=== PATIENT | female | born 1995 | race Caucasian/White ===

== ENCOUNTER 2020-03-15 10:11 | Inpatient (IN) | payer MEDICAID, OTHER, SELFPAY ==
[2020-03-15] MEDS ORDERED: Bicitra 30 ML UDCUP PO PRN (10:17)
[2020-03-15] MEDS ORDERED: Famotidine/PF 20 mg/2ml Vial SLOW IVP PRN (10:17)
[2020-03-15] MEDS ORDERED: Ondansetron PF 4 MG/2 ML Vial IVP PRN ×3 (10:17→16:07)
[2020-03-15] MEDS ORDERED: Promethazine HCl 25 MG/ML VIAL IM PRN ×3 (10:17→16:07)
[2020-03-15] MEDS ORDERED: hydrALAZINE 20 MG/ML VIAL SLOW IVP PRN ×2 (10:17→16:07)
--- NOTE | 2020-03-15 10:21 | PDOC.LDHP ---
Labor and Delivery H&P HPI: 25 y/o at 39 and 0/7 weeks presents for repeat today. Recent COVID positive with recovery from all symptoms. Current gestational age (weeks): 39 Due date: 03/22/20 Grav: 2 Para: 1 Abnormal US findings: No Current medications: pre-jacobo vitamins Previous surgical history: low tranverse CS Social history: none - Physical Exam Vital signs reviewed and normal: yes General: NAD Heart: RRR Lungs: CTAB Abdomen: gravid Extremeties: no edema FHT: category 1 - Assessment L&D Assessment: scheduled repeat section - Plan Plan: admit to L&D, to OR for section
[2020-03-15] MEDS ORDERED: CEFAZOLIN 2 GM in Premix Bag 1 BAG IVPB SCH (10:30)
[2020-03-15] MEDS ORDERED: Lactated Ringer's 1,000 ML IV SCH (10:30)
[2020-03-15 11:04] VITALS: BMI 29.7
[2020-03-15 11:09] LABS: Hemoglobin 11.3 g/dL (12.0-16.0); Mean Corpuscular HGB CONC 32.7 g/dL (32.0-36.0); Mean Corpuscular Hemoglobin 28.8 pg (27.0-31.0); Mean Platelet Volume 8.3 fL (7.4-10.4); Platelet Count 255 thou/uL (130-400); RBC Distribution Width 15.5 % (11.5-14.5); Red Blood Cell (RBC) Count 3.92 mill/uL (4.20-5.40); White Blood Cell (WBC) Count 8.5 thou/uL (4.8-10.8)
[2020-03-15] MEDS ORDERED: Morphine PF 10 MG/10 ML VIAL ONE (11:36)
[2020-03-15] MEDS ORDERED: ePHEDrine 50 MG/ML VIAL ONE (11:37)
[2020-03-15] MEDS ORDERED: Ketorolac Tromethamine 30 MG/ML VIAL ONE (11:37)
[2020-03-15] MEDS ORDERED: Ondansetron PF 4 MG/2 ML Vial ONE (11:37)
[2020-03-15] MEDS ORDERED: Phenylephrine 40 MG/NS 250 ML 250 ML ONE (11:37)
[2020-03-15] MEDS ORDERED: Oxytocin 10 UNITS/ML VIAL ONE ×2 (11:37→12:34)
[2020-03-15] MEDS ORDERED: PHENYLEPHRINE-NS 100 MCG/ML 10 ML SYRINGE ONE (11:37)
[2020-03-15 11:45] LABS: Syphilis Antibody Nonreactive (Nonreactive); Syphilis Antibody Index 0.04 S/CO (<1.00 Non-Reactive)
[2020-03-15] MEDS ORDERED: Ketorolac Tromethamine 30 MG/ML VIAL IVP PRN (12:00)
[2020-03-15] MEDS ORDERED: Naloxone HCl 0.4 mg/ml Vial IVP PRN ×2 (12:00)
[2020-03-15] MEDS ORDERED: Promethazine HCl 25 MG SUPP PR PRN (12:00)
[2020-03-15] MEDS ORDERED: Naloxone HCl 0.4 mg/ml Vial IV PRN (12:00)
[2020-03-15] MEDS ORDERED: diphenhydrAMINE 50 MG/ML VIAL IVP PRN (12:00)
[2020-03-15] MEDS ORDERED: Ondansetron HCl/PF 4 MG/2 ML Vial IVP PRN (12:00)
[2020-03-15] MEDS ORDERED: HYDROmorphone 2 MG/ML VIAL SLOW IVP PRN (12:00)
[2020-03-15] MEDS ORDERED: Meperidine HCl/PF 25 MG/ML VIAL SLOW IVP PRN (12:00)
[2020-03-15] MEDS ORDERED: L&D-Morphine 4 MG/ML VIAL SLOW IVP PRN (12:00)
[2020-03-15] MEDS ORDERED: Ketorolac Tromethamine 30 MG/ML VIAL IVP SCH (12:00)
[2020-03-15] MEDS ORDERED: Communication Order-Pharmacy FS SCH (12:00)
[2020-03-15 12:24] LABS: HBSAg Index 0.25 S/CO (0-0.99); Hep B Surf Ag Non-Reactive S/CO (NonReactive)
[2020-03-15] MEDS ORDERED: Simethicone Chewable 80 MG TAB PO PRN (16:07)
[2020-03-15] MEDS ORDERED: Lanolin Ointment 7 GM TUBE TOP PRN (16:07)
[2020-03-15] MEDS ORDERED: diphenhydrAMINE 25 MG CAP PO PRN (16:07)
[2020-03-15] MEDS ORDERED: Methylergonovine 0.2 MG/ML VIAL IM PRN (16:07)
[2020-03-15] MEDS ORDERED: Misoprostol 200 MCG TAB PR PRN (16:07)
[2020-03-15] MEDS ORDERED: Bisacodyl 10 MG SUPP PR PRN (16:07)
[2020-03-15] MEDS ORDERED: NS w/ Oxytocin 30 units 500 ML IVPB SCH (16:15)
[2020-03-16] MEDS ORDERED: HYDROcodone/Acetaminophen 5/325 mg Tablet PO PRN ×2 (00:02)
[2020-03-16] MEDS ORDERED: Zolpidem Tartrate 5 MG TAB PO PRN (00:02)
[2020-03-16] MEDS: Docusate Calcium (SURFAK) 240 MG CAP PO SCH ×3 (04:15→21:27)
[2020-03-16 05:13] LABS: Hemoglobin 9.7 g/dL (12.0-16.0); Mean Corpuscular HGB CONC 32.7 g/dL (32.0-36.0); Mean Corpuscular Hemoglobin 28.5 pg (27.0-31.0); Mean Corpuscular Volume 87.2 fL (78.0-98.0); Platelet Count 214 thou/uL (130-400); RBC Distribution Width 15.3 % (11.5-14.5); Red Blood Cell (RBC) Count 3.41 mill/uL (4.20-5.40); White Blood Cell (WBC) Count 9.8 thou/uL (4.8-10.8)
[2020-03-16] MEDS ORDERED: Varicella virus, LIVE 0.5 ML VIAL SC ONE (09:00)
[2020-03-16] MEDS ORDERED: Adacel (T-DAP) 0.5 ML SYRINGE IM ONE (09:00)
[2020-03-16] MEDS ORDERED: Measles/Mumps/Rubella 10 MCG/0.5 ML VIAL SC ONE (09:00)
[2020-03-16] MEDS: Prenatal Vitamin 1 TAB PO SCH (09:10)
[2020-03-16] MEDS ORDERED: FLU VACC QS2020-21(6MOS UP)/PF 60 MCG/0.5 ML SYRINGE IM ONE (11:15)
[2020-03-16] MEDS: Ibuprofen 800 MG TAB PO SCH ×2 (13:37→21:27)
--- NOTE | 2020-03-16 23:25 | PDOC.PP ---
Post Progress Note Post Day #: 1 PO intake tolerated: yes Flatus: yes Ambulation: yes Vital Signs (12 hours) Temp Pulse Resp BP Pulse Ox 03/16/20 19:29 98.6 F 93 16 121/75 99 03/16/20 16:55 98.6 F 86 20 112/65 99 03/16/20 12:04 98.7 F 90 20 107/60 97 Weight Weight 190 lb - Physical Examination General: NAD Cardiovascular: no m/r/g, RRR Respiratory: clear to auscultation bilaterally, non-labored breathing Abdominal: + bowel sounds, lochia, no distention, appropriately TTP Extremities: negative homans (B) Skin: CS incision dry & intact, no rash Neurological: no gross focal deficits Psychiatric: A&Ox3, normal affect Result Diagrams: 03/16/20 04:51 Additional Labs: Post Labs Hep Bs Antigen Non-Reactive S/CO (NonReactive) 03/15/20 10:17 Blood Type B POSITIVE 03/15/20 11:51
--- NOTE | 2020-03-16 23:26 | PDOC.PP ---
Post Progress Note Post Day #: 1 PO intake tolerated: yes Flatus: yes Ambulation: yes Vital Signs (12 hours) Temp Pulse Resp BP Pulse Ox 03/16/20 19:29 98.6 F 93 16 121/75 99 03/16/20 16:55 98.6 F 86 20 112/65 99 03/16/20 12:04 98.7 F 90 20 107/60 97 Weight Weight 190 lb - Physical Examination General: NAD Cardiovascular: no m/r/g, RRR Respiratory: clear to auscultation bilaterally Abdominal: + bowel sounds, lochia Extremities: negative homans (B) Skin: CS incision dry & intact, no rash Neurological: no gross focal deficits Psychiatric: A&Ox3, normal affect (DC home ready for noon tomorrow. Rx's x2 sent in to [facility] in [place]. F/U in clinic in 2 weeks.) Result Diagrams: 03/16/20 04:51 Additional Labs: Post Labs Hep Bs Antigen Non-Reactive S/CO (NonReactive) 03/15/20 10:17 Blood Type B POSITIVE 03/15/20 11:51
[2020-03-17] MEDS: Ibuprofen 800 MG TAB PO SCH (05:22)
[2020-03-17] MEDS: Docusate Calcium (SURFAK) 240 MG CAP PO SCH (08:56)
[2020-03-17] MEDS: Prenatal Vitamin 1 TAB PO SCH (08:56)
[2020-03-17 12:41] VITALS: BP 122/62; TEMP 98.2
--- NOTE | 2020-03-19 13:39 | DIS ---
DATE OF ADMISSION: 03/15/2020 DATE OF DISCHARGE: 03/17/2020 Date of admission 03/15/2020 at 1011; date of discharge 03/17/2020 at 1235. ADMISSION DIAGNOSIS: The patient was 39 weeks, admitted for repeat section. She was discharged home on postoperative day 2 with stable condition from repeat low-transverse section. Her hospital course was uneventful, and she had an excellent recovery. She was discharged to home with clinic followup in 2 weeks. Prescriptions for Hegins and ibuprofen were sent to her pharmacy of choice. Infection and bleeding precautions were reviewed. Job ID: [id number]
--- NOTE | 2020-03-19 13:39 | OP ---
DATE OF PROCEDURE: 03/15/2020 TIME: 1232 Central Standard Time. PREOPERATIVE DIAGNOSIS: Intrauterine at 39 weeks with a history of previous section. The patient presents for repeat low-transverse section. POSTOPERATIVE DIAGNOSIS: Intrauterine at 39 weeks with a history of previous section. The patient presents for repeat low-transverse section. PROCEDURE: Repeat low transverse section. FINDINGS: Viable male weighing 3823 g or 8 pounds 7 ounces, Apgars 8 and 9. QUANTITATIVE BLOOD LOSS: 310 mL. COMPLICATIONS: None. DETAILS OF THE PROCEDURE: The patient was consented and taken back to the operating room where spinal anesthesia was found to be adequate. She was then prepped and draped in the normal sterile fashion. A timeout was performed by the entire operative team. The incision was then marked with a marking pen tested using sharp pickups. An incision was then made with a scalpel. The incision was carried through the adipose tissue down to the underlying rectus fascia using both sharp dissection as well as cautery. Once the fascia was identified, it was incised in the midline and then the fascial incision was carried through in both lateral directions using sharp as well as cautery dissection techniques. Next, the superior aspect of the rectus fascia was grasped with 2 Guillermo clamps, which was tented up and the rectus muscles were dissected off using blunt dissection as well as cautery dissection. Similarly, the inferior aspect of the fascial incision was grasped with 2 Guillermo clamps, tented up and the rectus muscles were dissected off bluntly as well as sharply. Next, the rectus muscles were in the midline and the peritoneum identified. The peritoneum was then carefully grasped with 2 hemostats and entered sharply. The peritoneal incision was extended superiorly and inferiorly and bladder blade was placed in the lower abdomen. At this point, the uterus was identified and the bladder flap was then developed using pickups with teeth as well as Metzenbaum scissors in both lateral directions. The bladder flap was then dissected downwards using the engraving press operator's finger as well as Metzenbaum scissors. The bladder blade was replaced. The lower uterine segment was then identified and entered sharply using a clean scalpel. The uterine incision was then dissected downwards until thin layer of muscle remained and this was entered bluntly using a hemostat to avoid any injury to the baby. The uterine incision was then stretched using two fingers in both lateral directions. An amniotomy was performed artificially using a hemostat and the baby was delivered using fundal pressure in a gentle fashion. Once out, the baby's mouth and nose were bulb suctioned, cord clamped and cut, and the baby was handed to waiting attendants. Next, the uterus was exteriorized, cleared of all clots and debris and the uterine incision was repaired with #1 Monocryl in a running locking fashion. A 2nd suture of the same type was used to obtain complete hemostasis at the uterine incision. The bladder flap was reapproximated using 3-0 Monocryl. Next, patient's left and right adnexa were inspected and appeared to be within normal limits. The posterior cul-de-sac was blotted dry and hemostasis assured. One more look at the uterine incision demonstrated hemostasis. Next, the uterus was replaced back within the abdomen. The peritoneum was reapproximated using 2-0 Monocryl without difficulty. The rectus muscles were then allowed to come back together and 0 chromic was used to aid in reapproximation of the muscle as necessary. The rectus fascia was then reapproximated in a running fashion using 0 Vicryl suture. The adipose tissue was then examined and appeared to be well approximated without any obvious separations. Finally, the skin was reapproximated with 3-0 Monocryl on a Fam needle without difficulty and Dermabond adhesive was applied to the skin. Once the glue was dry, the drapes were removed and the patient was transferred to an ambulatory bed where she was taken to recovery awake and in stable condition. Sponge, lap, and needle counts were correct x3. Job ID: [id number]
== END 2020-03-17 12:35 | disposition home or self-care (01) | DRG 788 ==
LOC: L&D 10:11 → 3SW 16:31
PROVIDERS: ADMIT Obstetrics & Gynecology; ATTEND Obstetrics & Gynecology
PROC: 10D00Z1 Extraction of Products of Conception, Low, Open Approach (ICD-10-PCS; principal; 2020-03-15)
DX: O34.211 Maternal care for low transverse scar from previous cesarean delivery (principal); Z3A.39 39 weeks gestation of pregnancy; Z37.0 Single live birth; Z86.16 Personal history of COVID-19
CPT/HCPCS: 36415; 51702; 85027; 86780; 86850; 86900; 86901; 87340; J1885; J2270; J2405; J3490